=== PATIENT | female | born 1990 | race African-American/Black ===

== ENCOUNTER 2024-02-10 09:50 | Emergency (ER) | payer SELFPAY ==
[2024-02-10 10:34] LABS: #Basophils 0.03 10x3/uL (0.0-0.2); #Eosinphils 0.07 10x3/uL (0.0-0.5); #Neutrophils 5.38 10x3/uL (1.5-8.4); %Basophils 0.3 % (0.0-2.0); %Eosinophils 0.8 % (0.0-6.0); %Lymphocytes 30.1 % (18.0-47.0); %Monocytes 6.9 % (0.0-10.0); %Neutrophils 61.7 % (40.0-75.0); Hematocrit 36.7 % (34.9-44.5); Hemoglobin 11.8 g/dL (12.0-15.5); Mean Corpuscular HGB CONC 32.2 g/dL (32.0-36.0); Mean Corpuscular Hemoglobin 26.6 pg (27.0-33.0); Mean Corpuscular Volume 82.7 fL (81.6-98.3); Mean Platelet Volume 8.7 fL (7.4-10.4); Platelet Count 382 10x3/uL (150-450); RBC Distribution Width 15.7 % (11.5-14.5); Red Blood Cell (RBC) Count 4.44 10x6/uL (3.90-5.03); White Blood Cell (WBC) Count 8.7 10x3/uL (3.5-10.5)
== END 2024-02-10 20:19 | disposition home or self-care (01) ==
LOC: CSHERS 09:50
DX: O26.851 Spotting complicating pregnancy, first trimester (principal); O99.891 Other specified diseases and conditions complicating pregnancy; R10.9 Unspecified abdominal pain; Z3A.01 Less than 8 weeks gestation of pregnancy; Z33.1 Pregnant state, incidental
CPT/HCPCS: 36415; 76856; 84702; 85025